=== PATIENT | female | born 1965 | race Caucasian/White ===

== ENCOUNTER 2018-06-11 14:00 | Emergency (ER) | payer OTHER ==
[~2018-06-11] VITALS: Ht 157.5 cm; Wt 77.1 kg
[2018-06-11 14:00] VITALS: BP_SYST 148
[2018-06-11] MEDS ORDERED: NACL 0.9% 1,000 ML IV ONE (14:26)
[2018-06-11 14:56] LABS: BASOPHILS # (AUTO) 0.2 K/uL (0.0-0.2); HEMATOCRIT 33.4 % (36-48); HEMOGLOBIN 10.1 g/dL (12.0-16.0); LYMPHOCYTES # (AUTO) 1.1 K/uL (1.0-5.5); LYMPHOCYTES % (AUTO) 11.3 % (20.5-51.5); MEAN CORPUSCULAR HEMOGLOBIN 20 pg (27-31); MEAN CORPUSCULAR HGB CONC 30 % (32-36); MEAN CORPUSCULAR VOLUME 67 fL (79.0-98.0); MONOCYTES # (AUTO) 0.4 K/uL (0.0-1.0); MONOCYTES % (AUTO) 4.6 % (1.7-9.3); NEUTROPHILS # (AUTO) 7.9 K/uL (1.8-7.7); NEUTROPHILS % (AUTO) 82.1 % (40.0-70.0); PLATELET COUNT (AUTO) 405 K/uL (130-430); RED BLOOD CELL COUNT(AUTO) 4.97 MIL/uL (4.2-6.2); RED CELL DISTRIBUTION WIDTH 21.2 % (9.0-15.0); WHITE BLOOD COUNT (AUTO) 9.6 K/uL (4.8-10.8)
[2018-06-11 15:06] LABS: CALCIUM 9.2 mg/dL (8.4-11.0); CREATININE 0.85 mg/dL (0.55-1.30); POTASSIUM 3.3 mmol/L (3.5-5.1)
[2018-06-11 15:10] LABS: ALBUMIN 4.4 g/dL (3.4-4.8); TOTAL BILIRUBIN 0.3 mg/dL (0.0-1.0)
[2018-06-11 15:11] LABS: BILIRUBIN,URINE 1+ (NEGATIVE); BLOOD, URINE NEGATIVE (NEGATIVE); CLARITY/URINE CLEAR (CLEAR); COLOR,URINE YELLOW (YELLOW); GLUCOSE,URINE NEGATIVE (NEGATIVE); KETONES,URINE 2+ (NEGATIVE); LEUKOCYTE ESTERASE ,URINE NEGATIVE (NEGATIVE); NITRITE, URINE NEGATIVE (NEGATIVE); PH,URINE 5.5 (5.0-8.0); PROTEIN URINE NEGATIVE (NEGATIVE); UROBILINOGEN,URINE 0.2 (0.2-1.0)
[2018-06-11 15:43] VITALS: BP_SYST 127
== END 2018-06-11 15:43 | disposition home or self-care (01) ==
LOC: SED 14:00
DX: R10.12 Left upper quadrant pain (principal); R11.0 Nausea; R03.0 Elevated blood-pressure reading, without diagnosis of hypertension; F41.9 Anxiety disorder, unspecified
CPT/HCPCS: 36415; 80053; 81003; 81025; 83690; 85025; 99283; J7030

== ENCOUNTER 2018-06-12 10:47 | Emergency (ER) | payer OTHER ==
[~2018-06-12] VITALS: Ht 157.5 cm; Wt 76.2 kg
[2018-06-12] MEDS ORDERED: KETOROLAC TROMETHAMINE 15 MG VIAL IVP ONE (11:30)
[2018-06-12] MEDS ORDERED: LORazepam 2 MG/ML VIAL (FOR ER USE) IVP ONE (11:30)
[2018-06-12] MEDS ORDERED: NACL 0.9% 1,000 ML IV ONE (11:30)
[2018-06-12] MEDS ORDERED: fentaNYL CITRATE/PF 100 MCG/2 ML AMP IVP ONE (12:45)
[2018-06-12 13:43] VITALS: BP_SYST 134
== END 2018-06-12 13:40 | disposition home or self-care (01) ==
LOC: SED 10:47
DX: R10.32 Left lower quadrant pain (principal); F41.9 Anxiety disorder, unspecified; R03.0 Elevated blood-pressure reading, without diagnosis of hypertension
CPT/HCPCS: 74176; 81002; 81025; 96361; 96374; 96375; 99284; J1885; J2060; J3010; J7030

== ENCOUNTER 2018-12-30 12:04 | Emergency (ER) | payer OTHER ==
[~2018-12-30] VITALS: Ht 160 cm; Wt 78.0 kg
[2018-12-30 12:27] VITALS: BP_SYST 119
--- NOTE | 2018-12-30 12:31 | NUR ---
Patient to ER bed 8 to gown for evaluation. Side rails up. Report given to TOÑO Wilson.
[2018-12-30] MEDS ORDERED: NACL 0.9% 1,000 ML IV ONE (12:48)
--- NOTE | 2018-12-30 12:58 | NUR ---
ER at bedside examining patient.
[2018-12-30] MEDS ORDERED: KETOROLAC TROMETHAMINE 30 MG VIAL IVP ONE (13:00)
[2018-12-30] MEDS ORDERED: ONDANSETRON HCL 4 MG/2 ML VIAL IVP ONE (13:00)
[2018-12-30 13:22] LABS: BASOPHILS # (AUTO) 0.1 K/uL (0.0-0.2); BASOPHILS % (AUTO) 0.6 % (0.0-2.0); EOSINOPHILS # (AUTO) 0.1 K/uL (0.0-0.4); EOSINOPHILS % (AUTO) 1.8 % (0.0-4.0); HEMATOCRIT 28.2 % (36-48); HEMOGLOBIN 8.6 g/dL (12.0-16.0); LYMPHOCYTES # (AUTO) 1.3 K/uL (1.0-5.5); LYMPHOCYTES % (AUTO) 16.4 % (20.5-51.5); MEAN CORPUSCULAR HEMOGLOBIN 21 pg (27-31); MEAN CORPUSCULAR HGB CONC 31 % (32-36); MEAN CORPUSCULAR VOLUME 67 fL (79.0-98.0); MONOCYTES # (AUTO) 0.6 K/uL (0.0-1.0); NEUTROPHILS # (AUTO) 6.1 K/uL (1.8-7.7); NEUTROPHILS % (AUTO) 74.2 % (40.0-70.0); PLATELET COUNT (AUTO) 412 K/uL (130-430); RED CELL DISTRIBUTION WIDTH 18.7 % (9.0-15.0); WHITE BLOOD COUNT (AUTO) 8.2 K/uL (4.8-10.8)
[2018-12-30] MEDS ORDERED: LORazepam 2 MG/ML VIAL (FOR ER USE) IVP ONE (13:30)
--- NOTE | 2018-12-30 13:32 | NUR ---
pt assesed, pt resting in bed 8 alert and oriented. pt states she has 9/10 pain after toradol. pt states she has pain status unchanged. pt given ativan per md order. md aware of unchanged pain. will continue to monitor. pt stated she normally uses dilauded for pain, because she has increased anxiety with morphine sometimes. pt denies allergy to morphine.
[2018-12-30 13:34] LABS: CALCIUM 8.7 mg/dL (8.4-11.0); CREATININE 0.77 mg/dL (0.55-1.30); POTASSIUM 3.7 mmol/L (3.5-5.1)
[2018-12-30 13:41] LABS: ALBUMIN 3.4 g/dL (3.4-4.8); TOTAL BILIRUBIN 0.2 mg/dL (0.0-1.0)
[2018-12-30] MEDS ORDERED: fentaNYL 25 MCG/HR PATCH TD SCH (13:45)
[2018-12-30] MEDS ORDERED: fentaNYL CITRATE/PF 100 MCG/2 ML AMP IVP ONE ×2 (14:00→15:15)
[2018-12-30 14:03] LABS: BILIRUBIN,URINE NEGATIVE (NEGATIVE); BLOOD, URINE NEGATIVE (NEGATIVE); CLARITY/URINE CLEAR (CLEAR); COLOR,URINE YELLOW (YELLOW); GLUCOSE,URINE NEGATIVE (NEGATIVE); KETONES,URINE NEGATIVE (NEGATIVE); LEUKOCYTE ESTERASE ,URINE NEGATIVE (NEGATIVE); NITRITE, URINE NEGATIVE (NEGATIVE); PROTEIN URINE NEGATIVE (NEGATIVE)
--- NOTE | 2018-12-30 14:54 | NUR ---
Patient returned from radiology department via gurney. Patient states pain is still horrible, and she has the worst headache of her life. made aware.
--- NOTE | 2018-12-30 16:02 | NUR ---
Patient given written and verbal discharge instructions and verbalizes understanding. ER MD discussed with patient the results and treatment provided. Patient in stable condition. ID arm band removed. IV catheter removed intact and dressing applied, no active bleeding. Rx of tylenol, Ativan given. Patient educated on pain management and to follow up with PMD. Pain Scale 0/10. Opportunity for questions provided and answered. Medication side effect fact sheet provided.
[2018-12-30 16:06] VITALS: BP_SYST 131
== END 2018-12-30 16:02 | disposition home or self-care (01) ==
LOC: SED 12:04
DX: S16.1XXA Strain of muscle, fascia and tendon at neck level, initial encounter (principal); S33.9XXA Sprain of unspecified parts of lumbar spine and pelvis, initial encounter; S80.01XA Contusion of right knee, initial encounter; S09.90XA Unspecified injury of head, initial encounter; F41.9 Anxiety disorder, unspecified; R42 Dizziness and giddiness; V49.40XA Driver injured in collision with unspecified motor vehicles in traffic accident, initial encounter; Y93.89 Activity, other specified; Y92.89 Other specified places as the place of occurrence of the external cause; Y99.8 Other external cause status
CPT/HCPCS: 36415; 70450-TC; 72040-TC; 72100-TC; 73564; 80053; 81003; 85025; 96361; 96374; 96375; 96376; 99284; J1885; J2060; J2405; J3010; J7030

== ENCOUNTER 2019-01-04 08:34 | Emergency (ER) | payer OTHER ==
[~2019-01-04] VITALS: Ht 160 cm; Wt 76.2 kg
[2019-01-04 08:52] VITALS: BP_SYST 137
--- NOTE | 2019-01-04 08:55 | NUR ---
Patient to ER bed 6 to gown for evaluation. Side rails up. Report given to Shannan LUNDBERG.
--- NOTE | 2019-01-04 08:58 | NUR ---
ER at bedside examining patient.
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
[2019-01-04] MEDS ORDERED: fentaNYL CITRATE/PF 100 MCG/2 ML AMP IM ONE (09:15)
[2019-01-04] MEDS ORDERED: DIAZEPAM 5 MG TABLET (VALIUM) PO ONE (09:15)
--- NOTE | 2019-01-04 09:50 | NUR ---
Loreto chaudhary in [facility] - 01/04/19 at 1051 by [email or web address] Patient resting in [facility] pain is still 02/22. Made DR Reilly aware
--- NOTE | 2019-01-04 09:50 | NUR ---
Patient resting in gurney, pt states pain is still 10/10. Made DR Reilly aware
--- NOTE | 2019-01-04 09:59 | NUR ---
ER at bedside patient.
[2019-01-04] MEDS ORDERED: KETOROLAC TROMETHAMINE 30 MG VIAL IM ONE (10:00)
[2019-01-04 10:15] VITALS: BP_SYST 137
--- NOTE | 2019-01-04 10:15 | NUR ---
Patient given written and verbal discharge instructions and verbalizes understanding. ER MD discussed with patient the results and treatment provided. Patient in stable condition. ID arm band removed. Rx of Naprosyn & Lidoderm 5% transdermal patch given. Patient educated on pain management and to follow up with PMD. Pain Scale 9/10 tolerable for patient. Opportunity for questions provided and answered. Medication side effect fact sheet provided.
== END 2019-01-04 10:15 | disposition home or self-care (01) ==
LOC: SED 08:34
DX: R51 Headache (principal); M62.830 Muscle spasm of back; M62.838 Other muscle spasm
CPT/HCPCS: 96372; 99283; J1885; J3010

== ENCOUNTER 2019-02-17 17:42 | Emergency (ER) | payer OTHER ==
[~2019-02-17] VITALS: Ht 157.5 cm; Wt 78.9 kg
[2019-02-17 17:45] VITALS: BP_SYST 164
[2019-02-17] MEDS ORDERED: LORazepam 2 MG/ML VIAL IVP ONE (18:15)
[2019-02-17] MEDS ORDERED: DILTIAZEM HCL 25 MG/5 ML VIAL IVP ONE (18:15)
[2019-02-17 18:42] LABS: HEMATOCRIT 34.1 % (36-48); HEMOGLOBIN 10.5 g/dL (12.0-16.0); MEAN CORPUSCULAR HEMOGLOBIN 22 pg (27-31); MEAN CORPUSCULAR HGB CONC 31 % (32-36); MEAN CORPUSCULAR VOLUME 70 fL (79.0-98.0); PLATELET COUNT (AUTO) 385 K/uL (130-430); RED BLOOD CELL COUNT(AUTO) 4.84 MIL/uL (4.2-6.2); RED CELL DISTRIBUTION WIDTH 20.1 % (9.0-15.0); WHITE BLOOD COUNT (AUTO) 11.3 K/uL (4.8-10.8)
[2019-02-17 19:16] LABS: ANION GAP 16 (5-15); CALCIUM 9.7 mg/dL (8.4-11.0); CHLORIDE 102 mmol/L (98-107); CREATININE 1.08 mg/dL (0.55-1.30); GLUCOSE 159 mg/dL (70-99); POTASSIUM 3.4 mmol/L (3.5-5.1); SODIUM SERUM 140 mmol/L (136-145); UREA NITROGEN, BLOOD 23 mg/dL (8-21)
[2019-02-17 19:17] LABS: GFR AFRICAN AMERICAN 69 mL/min (>90)
[2019-02-17 19:19] LABS: BAND % (MANUAL) 0 % (0-6); BASOPHILS % (MANUAL) 0 % (0-2); EOSINOPHILS % (MANUAL) 0 % (0-7); LYMPHOCYTES % (MANUAL) 11 % (20-46); MONOCYTES % (MANUAL) 6 % (0-11)
[2019-02-17 19:25] LABS: ALANINE AMINOTRANSFERASE 19 U/L (12-78); ALBUMIN 4.1 g/dL (3.4-4.8); ASPARTATE AMINOTRANSFERASE 20 U/L (10-37); LIPASE 102 U/L (73-393); TOTAL BILIRUBIN 0.5 mg/dL (0.0-1.0)
[2019-02-17 19:26] LABS: ALCOHOL, BLOOD < 3 mg/dL (<10)
[2019-02-17 19:55] LABS: BARBITURATE, URINE NEGATIVE (NEG <=200); URINE AMPHETAMINE NEGATIVE (NEG <=500)
[2019-02-17 19:56] LABS: BENZODIAZEPINE, URINE POSITIVE (NEG <=150); CANNABINOID, URINE POSITIVE (NEG <=50); COCAINE, URINE NEGATIVE (NEG <=150); METHAMPHETAMINES SCREEN,URINE NEGATIVE (NEG <=500); OPIATE, URINE NEGATIVE (NEG <=100); PHENCYCLIDINE SCREEN,URINE NEGATIVE (NEG <=25); UR TRICYCLIC ANTIDEPRESSANTS NEGATIVE (NEG <=300); URINE METHADONE NEGATIVE (NEG <=200); URINE OXYCODONE SCREEN NEGATIVE (NEG <=100); URINE PROPOXYPHENE SCREEN NEGATIVE (NEG <=300)
[2019-02-17 19:58] VITALS: BP_SYST 132
[2019-02-17 20:04] LABS: BILIRUBIN,URINE NEGATIVE (NEGATIVE); BLOOD, URINE NEGATIVE (NEGATIVE); CLARITY/URINE CLEAR (CLEAR); COLOR,URINE YELLOW (YELLOW); GLUCOSE,URINE NEGATIVE (NEGATIVE); KETONES,URINE 1+ (NEGATIVE); LEUKOCYTE ESTERASE ,URINE NEGATIVE (NEGATIVE); NITRITE, URINE NEGATIVE (NEGATIVE); PROTEIN URINE TRACE (NEGATIVE); UROBILINOGEN,URINE 0.2 (0.2-1.0)
[2019-02-17 20:07] LABS: BACTERIA,URINE FEW /HPF (None Seen); MUCUS,URINE None Seen /LPF (None Seen); RBC,URINE NONE SEEN /HPF (0-3); WBC,URINE 0-3 /HPF (0-3)
== END 2019-02-17 19:58 | disposition home or self-care (01) ==
LOC: SED 17:42
DX: F41.9 Anxiety disorder, unspecified (principal); R10.9 Unspecified abdominal pain; I10 Essential (primary) hypertension
CPT/HCPCS: 36415; 71045; 74176; 80053; 80307; 81000; 81025; 83690; 84484; 85007; 85027; 93005; 96374; 99284; G0482; J2060

== ENCOUNTER 2019-04-17 01:44 | Emergency (ER) | payer OTHER ==
[~2019-04-17] VITALS: Ht 157.5 cm; Wt 79.4 kg
[2019-04-17 01:54] VITALS: BP_SYST 186
--- NOTE | 2019-04-17 01:59 | NUR ---
Patient to ER bed 07 to gown for evaluation. Side rails up. Report given to TOÑO ROTHMAN
--- NOTE | 2019-04-17 02:00 | NUR ---
Pt complains of "churning and gurgling" of the abdomen for about a month. Pt states she has yellow diarrhea and then would stop. Pt denies N/V or recent cough. Pt also complains of pressure behind sinus region. No other injuries/complaints per patient or noted. Addendum: 04/17/19 at 0207 by [email or web address] Patient also complains that she feels her abdomen is distended and that her face is swollen.
--- NOTE | 2019-04-17 02:04 | NUR ---
ER Dr. Jim at bedside examining patient.
[2019-04-17] MEDS ORDERED: LORazepam 1 MG TABLET PO ONE (02:15)
--- NOTE | 2019-04-17 02:34 | NUR ---
Xray at bedside, pt tolerated well.
--- NOTE | 2019-04-17 02:45 | NUR ---
ER Dr. Jim at bedside explaining results to patient.
--- NOTE | 2019-04-17 03:23 | NUR ---
patient resting comfortably in bed. No acute distress, will continue to monitor.
--- NOTE | 2019-04-17 04:39 | NUR ---
Patient resting comfortably in bed. No acute distress, will continue to monitor.
[2019-04-17 04:59] VITALS: BP_SYST 150
--- NOTE | 2019-04-17 04:59 | NUR ---
Patient given written and verbal discharge instructions and verbalizes understanding. ER MD discussed with patient the results and treatment provided. Patient in stable condition. ID arm band removed. Rx of Xanax given. Patient educated on pain management and to follow up with PMD. Pain Scale 0. Opportunity for questions provided and answered. Medication side effect fact sheet provided.
== END 2019-04-17 04:59 | disposition home or self-care (01) ==
LOC: SED 01:44
DX: F41.9 Anxiety disorder, unspecified (principal); F43.9 Reaction to severe stress, unspecified; G47.00 Insomnia, unspecified; I10 Essential (primary) hypertension
CPT/HCPCS: 74018; 93005; 99283

== ENCOUNTER 2019-05-12 00:21 | Emergency (ER) | payer OTHER ==
[~2019-05-12] VITALS: Ht 160 cm; Wt 78.5 kg
[2019-05-12 00:25] VITALS: BP_SYST 186
--- NOTE | 2019-05-12 00:25 | NUR ---
Placed in room 7 . Placed on draw frame tender, blood pressure machine and pulse oximeter. To gown for exam. Side rails up. Report given to STEPHAN LUNDBERG.
--- NOTE | 2019-05-12 00:30 | NUR ---
Patient complains of abdominal pain and lower back pain for the last few days. Pt states at times she wakes up feeling as if something is sitting on her chest and abdomen. O2 saturation on room air is 98%. Pt denies N/V, fever. No other injuries/complaints per patient or noted.
[2019-05-12] MEDS ORDERED: LORazepam 2 MG/ML VIAL IM ONE (00:45)
--- NOTE | 2019-05-12 00:58 | NUR ---
patient insisted to have shot in deltoid than gluteus jaron. medication was given, pt tolerated well. No adverse reaction, will continue to monitor.
--- NOTE | 2019-05-12 00:59 | NUR ---
ER Dr. Kennedy at bedside examining patient.
[2019-05-12 01:03] LABS: BILIRUBIN,URINE NEGATIVE (NEGATIVE); BLOOD, URINE 3+ (NEGATIVE); CLARITY/URINE CLEAR (CLEAR); COLOR,URINE YELLOW (YELLOW); GLUCOSE,URINE NEGATIVE (NEGATIVE); KETONES,URINE 2+ (NEGATIVE); LEUKOCYTE ESTERASE ,URINE NEGATIVE (NEGATIVE); NITRITE, URINE NEGATIVE (NEGATIVE); PROTEIN URINE NEGATIVE (NEGATIVE); UROBILINOGEN,URINE 0.2 (0.2-1.0)
[2019-05-12 01:09] LABS: BACTERIA,URINE FEW /HPF (None Seen); WBC,URINE 0-3 /HPF (0-3)
--- NOTE | 2019-05-12 01:43 | NUR ---
Patient states she feels a little better. Current BP at 142/94 with HR of 73.
[2019-05-12 02:40] VITALS: BP_SYST 130
--- NOTE | 2019-05-12 02:40 | NUR ---
Patient given written and verbal discharge instructions and verbalizes understanding. ER MD discussed with patient the results and treatment provided. Patient in stable condition. ID arm band removed. Rx of Cipro given. Patient educated on pain management and to follow up with PMD. Pain Scale 0. Opportunity for questions provided and answered. Medication side effect fact sheet provided.
== END 2019-05-12 02:40 | disposition home or self-care (01) ==
LOC: SED 00:21
DX: R07.9 Chest pain, unspecified (principal); N39.0 Urinary tract infection, site not specified; F41.9 Anxiety disorder, unspecified
CPT/HCPCS: 81000; 96372; 99283; J2060

== ENCOUNTER 2019-08-28 05:54 | Emergency (ER) | payer OTHER ==
[~2019-08-28] VITALS: Ht 157.5 cm; Wt 90.7 kg
[2019-08-28 06:03] VITALS: BP_SYST 153
[2019-08-28 06:51] LABS: BASOPHILS % (AUTO) 0.6 % (0.0-2.0); EOSINOPHILS % (AUTO) 0.1 % (0.0-4.0); HEMATOCRIT 42.5 % (36-48); HEMOGLOBIN 14.1 g/dL (12.0-16.0); MEAN CORPUSCULAR HEMOGLOBIN 29 pg (27-31); MEAN CORPUSCULAR HGB CONC 33 % (32-36); MEAN CORPUSCULAR VOLUME 87 fL (79.0-98.0); MONOCYTES # (AUTO) 0.5 K/uL (0.0-1.0); MONOCYTES % (AUTO) 6.1 % (1.7-9.3); NEUTROPHILS # (AUTO) 6.5 K/uL (1.8-7.7); NEUTROPHILS % (AUTO) 81.2 % (40.0-70.0); PLATELET COUNT (AUTO) 282 K/uL (130-430); RED CELL DISTRIBUTION WIDTH 15.7 % (9.0-15.0)
[2019-08-28 07:12] LABS: ANION GAP 11 (5-15); CALCIUM 9.2 mg/dL (8.4-11.0); CHLORIDE 97 mmol/L (98-107); CREATININE 0.81 mg/dL (0.55-1.30); GLUCOSE 126 mg/dL (70-99); SODIUM SERUM 136 mmol/L (136-145); UREA NITROGEN, BLOOD 9 mg/dL (8-21)
[2019-08-28 07:21] LABS: ALANINE AMINOTRANSFERASE 69 U/L (12-78); ALBUMIN 4.1 g/dL (3.4-4.8); AMYLASE 43 U/L (0-100); ASPARTATE AMINOTRANSFERASE 64 U/L (10-37); LIPASE 142 U/L (73-393); TOTAL BILIRUBIN 0.5 mg/dL (0.0-1.0)
[2019-08-28 07:25] LABS: INR 1.1 (0.8-1.2); PROTHROMBIN TIME 10.7 SECS (9.5-12.5)
[2019-08-28 07:27] LABS: GFR AFRICAN AMERICAN 95 mL/min (>90); POTASSIUM 2.6 mmol/L (3.5-5.1)
[2019-08-28] MEDS ORDERED: POTASSIUM CHLORIDE 20 MEQ TAB.PRT.SR PO ONE (07:30)
[2019-08-28] MEDS ORDERED: KCL 20 mEq in 100 mL (PREMIX) 100 ML IV ONE (07:30)
[2019-08-28 08:40] LABS: BILIRUBIN,URINE 1+ (NEGATIVE); BLOOD, URINE 2+ (NEGATIVE); CLARITY/URINE CLEAR (CLEAR); COLOR,URINE YELLOW (YELLOW); GLUCOSE,URINE NEGATIVE (NEGATIVE); KETONES,URINE 2+ (NEGATIVE); LEUKOCYTE ESTERASE ,URINE NEGATIVE (NEGATIVE); NITRITE, URINE NEGATIVE (NEGATIVE); PROTEIN URINE NEGATIVE (NEGATIVE); UROBILINOGEN,URINE 0.2 (0.2-1.0)
[2019-08-28] MEDS ORDERED: ACETAMINOPHEN 500 MG TABLET PO ONE (09:45)
[2019-08-28] MEDS ORDERED: KETOROLAC TROMETHAMINE 15 MG VIAL IVP ONE (10:30)
[2019-08-28] MEDS ORDERED: MAG-AL HYDROX/SIMETH 30 ML UDC PO ONE (10:30)
[2019-08-28 11:09] VITALS: BP_SYST 134
== END 2019-08-28 11:08 | disposition home or self-care (01) ==
LOC: SED 05:54
DX: E87.6 Hypokalemia (principal); F41.9 Anxiety disorder, unspecified
CPT/HCPCS: 36415; 74018; 80053; 82150; 83690; 83880; 84132; 84484; 85025; 85610; 96365; 96366; 96375; 99284; J1885; J3480

== ENCOUNTER 2019-08-28 12:55 | Emergency (ER) | payer OTHER ==
[~2019-08-28] VITALS: Ht 167.6 cm; Wt 74.8 kg
[2019-08-28 13:41] VITALS: BP_SYST 178
[2019-08-28] MEDS ORDERED: ONDANSETRON HCL 4 MG/2 ML VIAL IVP ONE (14:00)
[2019-08-28] MEDS ORDERED: MORPHINE 4 MG/ML INJ. SYRINGE IVP ONE (14:00)
== END 2019-08-28 15:30 | disposition home or self-care (01) ==
LOC: SED 12:55
DX: R10.30 Lower abdominal pain, unspecified (principal); F41.9 Anxiety disorder, unspecified
CPT/HCPCS: 74176; 96374; 96375; 99284; J2270; J2405

== ENCOUNTER 2019-08-30 06:19 | Emergency (ER) | payer OTHER ==
[~2019-08-30] VITALS: Ht 160 cm; Wt 80.7 kg
[2019-08-30 06:20] VITALS: BP_SYST 124
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
--- NOTE | 2019-08-30 06:30 | NUR ---
Pt states "I need to go to the restroom now. I have diarrhea." Pt ambulates to restroom with steady gait.
--- NOTE | 2019-08-30 06:40 | NUR ---
Dr. Lopez at bedside.
--- NOTE | 2019-08-30 07:05 | NUR ---
B/P 155/92, P 88. Pt denies c/o C/P or SOB. Pt states B/P gets high when she feels anxious. Dr. Lopez notified and pt cleared to be discharged.
[2019-08-30 07:10] VITALS: BP_SYST 155
--- NOTE | 2019-08-30 07:10 | NUR ---
Patient given written and verbal discharge instructions and verbalizes understanding. ER MD discussed with patient the results and treatment provided. Patient in stable condition. ID arm band removed. No Rx given. Patient educated on pain management and to follow up with PMD. Pain Scale 3/10. Opportunity for questions provided and answered. Medication side effect fact sheet provided.
== END 2019-08-30 07:10 | disposition home or self-care (01) ==
LOC: SED 06:19
DX: J02.9 Acute pharyngitis, unspecified (principal); F41.9 Anxiety disorder, unspecified
CPT/HCPCS: 99281

== ENCOUNTER 2019-08-30 21:21 | Emergency (ER) | payer OTHER, SELFPAY ==
[~2019-08-30] VITALS: Ht 160 cm; Wt 80.7 kg
[2019-08-30 21:21] VITALS: BP_SYST 152
[2019-08-30 22:24] LABS: BASOPHILS # (AUTO) 0.1 K/uL (0.0-0.2); BASOPHILS % (AUTO) 1.8 % (0.0-2.0); EOSINOPHILS # (AUTO) 0.1 K/uL (0.0-0.4); EOSINOPHILS % (AUTO) 0.7 % (0.0-4.0); HEMATOCRIT 42.3 % (36-48); HEMOGLOBIN 14.1 g/dL (12.0-16.0); LYMPHOCYTES # (AUTO) 2.2 K/uL (1.0-5.5); LYMPHOCYTES % (AUTO) 27.5 % (20.5-51.5); MEAN CORPUSCULAR HEMOGLOBIN 29 pg (27-31); MEAN CORPUSCULAR HGB CONC 34 % (32-36); MEAN CORPUSCULAR VOLUME 88 fL (79.0-98.0); MONOCYTES # (AUTO) 0.6 K/uL (0.0-1.0); NEUTROPHILS # (AUTO) 4.9 K/uL (1.8-7.7); PLATELET COUNT (AUTO) 276 K/uL (130-430); RED BLOOD CELL COUNT(AUTO) 4.82 MIL/uL (4.2-6.2); RED CELL DISTRIBUTION WIDTH 15.7 % (9.0-15.0); WHITE BLOOD COUNT (AUTO) 7.9 K/uL (4.8-10.8)
[2019-08-30 22:29] LABS: PROTHROMBIN TIME 10.4 SECS (9.5-12.5)
[2019-08-30 22:34] LABS: CREATININE 0.88 mg/dL (0.55-1.30)
[2019-08-30 22:39] LABS: TOTAL BILIRUBIN 0.4 mg/dL (0.0-1.0)
[2019-08-30 22:40] LABS: POTASSIUM 2.6 mmol/L (3.5-5.1)
[2019-08-30] MEDS ORDERED: ASPIRIN 81 MG TAB.CHEW PO ONE (22:45)
[2019-08-30] MEDS ORDERED: KCL 20 mEq in 100 mL (PREMIX) 100 ML IV ONE (23:00)
[2019-08-30] MEDS ORDERED: MAGNESIUM SULFATE 50 ML IV ONE (23:00)
[2019-08-30] MEDS ORDERED: POTASSIUM CHLORIDE 20 MEQ TAB.PRT.SR PO ONE (23:00)
[2019-08-31 01:24] LABS: ANION GAP 11 (5-15); CALCIUM 8.9 mg/dL (8.4-11.0); CHLORIDE 100 mmol/L (98-107); CREATININE 0.74 mg/dL (0.55-1.30); GLUCOSE 102 mg/dL (70-99); POTASSIUM 3.1 mmol/L (3.5-5.1); SODIUM SERUM 138 mmol/L (136-145); UREA NITROGEN, BLOOD 6 mg/dL (8-21)
[2019-08-31 01:25] LABS: GFR AFRICAN AMERICAN 106 mL/min (>90)
[2019-08-31] MEDS ORDERED: POTASSIUM CHLORIDE 20 MEQ TAB.PRT.SR PO ONE (02:30)
[2019-08-31 02:53] VITALS: BP_SYST 161
== END 2019-08-31 02:53 | disposition home or self-care (01) ==
LOC: EEVIPCON 21:21 → SED 21:21
DX: R07.89 Other chest pain (principal); J02.9 Acute pharyngitis, unspecified; J34.89 Other specified disorders of nose and nasal sinuses; F41.9 Anxiety disorder, unspecified; Z20.828 Contact with and (suspected) exposure to other viral communicable diseases
CPT/HCPCS: 36415; 71045; 80048; 80053; 83880; 84484; 85025; 85379; 85610; 85730; 86710; 93005 ×2; 96365 ×2; 96366 ×2; 96368; 99285; J3475; J3480; U0002

== ENCOUNTER 2019-09-02 15:33 | Emergency (ER) | payer OTHER ==
[~2019-09-02] VITALS: Ht 152.4 cm; Wt 72.6 kg
[2019-09-02 15:40] VITALS: BP_SYST 167
[2019-09-02] MEDS ORDERED: LORazepam 2 MG/ML VIAL IVP ONE (16:00)
[2019-09-02] MEDS ORDERED: NACL 0.9% 2,000 ML IV ONE (16:00)
[2019-09-02 16:17] LABS: BILIRUBIN,URINE NEGATIVE (NEGATIVE); BLOOD, URINE 3+ (NEGATIVE); CLARITY/URINE SL CLOUDY (CLEAR); COLOR,URINE RED (YELLOW); GLUCOSE,URINE NEGATIVE (NEGATIVE); KETONES,URINE TRACE (NEGATIVE); LEUKOCYTE ESTERASE ,URINE NEGATIVE (NEGATIVE); NITRITE, URINE NEGATIVE (NEGATIVE); PROTEIN URINE 1+ (NEGATIVE); UROBILINOGEN,URINE 0.2 (0.2-1.0)
[2019-09-02 16:24] LABS: BACTERIA,URINE FEW /HPF (None Seen); MUCUS,URINE 1+ /LPF (None Seen); RBC,URINE >100 /HPF (0-3); WBC,URINE 0-3 /HPF (0-3)
[2019-09-02 16:28] LABS: BASOPHILS # (AUTO) 0.1 K/uL (0.0-0.2); BASOPHILS % (AUTO) 0.7 % (0.0-2.0); EOSINOPHILS # (AUTO) 0.1 K/uL (0.0-0.4); EOSINOPHILS % (AUTO) 0.7 % (0.0-4.0); HEMATOCRIT 43.4 % (36-48); HEMOGLOBIN 14.2 g/dL (12.0-16.0); LYMPHOCYTES # (AUTO) 1.6 K/uL (1.0-5.5); LYMPHOCYTES % (AUTO) 21.1 % (20.5-51.5); MEAN CORPUSCULAR HEMOGLOBIN 29 pg (27-31); MEAN CORPUSCULAR HGB CONC 33 % (32-36); MEAN CORPUSCULAR VOLUME 89 fL (79.0-98.0); MONOCYTES # (AUTO) 0.6 K/uL (0.0-1.0); MONOCYTES % (AUTO) 8.1 % (1.7-9.3); NEUTROPHILS # (AUTO) 5.2 K/uL (1.8-7.7); NEUTROPHILS % (AUTO) 69.4 % (40.0-70.0); PLATELET COUNT (AUTO) 267 K/uL (130-430); RED BLOOD CELL COUNT(AUTO) 4.88 MIL/uL (4.2-6.2); RED CELL DISTRIBUTION WIDTH 16.2 % (9.0-15.0); WHITE BLOOD COUNT (AUTO) 7.5 K/uL (4.8-10.8)
[2019-09-02 16:31] LABS: CALCIUM 9.6 mg/dL (8.4-11.0); CREATININE 0.96 mg/dL (0.55-1.30)
[2019-09-02 16:35] LABS: PROTHROMBIN TIME 10.4 SECS (9.5-12.5)
[2019-09-02 16:46] LABS: FREE T4 (FREE THYROXINE) 1.3 ng/dl (0.8-1.5); THYROID STIMULATING HORMONE 1.63 uIu/mL (0.36-3.74); TOTAL BILIRUBIN 0.3 mg/dL (0.0-1.0)
[2019-09-02] MEDS ORDERED: POTASSIUM CHLORIDE 20 MEQ/PKT PACKET PO ONE (17:00)
[2019-09-02] MEDS ORDERED: ONDANSETRON HCL 4 MG/2 ML VIAL IVP ONE (17:15)
[2019-09-02] MEDS ORDERED: MORPHINE 4 MG/ML INJ. SYRINGE IVP ONE (17:15)
[2019-09-02 18:20] LABS: CALCIUM 8.5 mg/dL (8.4-11.0); CREATININE 0.75 mg/dL (0.55-1.30); POTASSIUM 4.7 mmol/L (3.5-5.1)
[2019-09-02 19:53] VITALS: BP_SYST 144
== END 2019-09-02 19:46 | disposition home or self-care (01) ==
LOC: SED 15:33
DX: F41.9 Anxiety disorder, unspecified (principal); N93.8 Other specified abnormal uterine and vaginal bleeding; N80.9 Endometriosis, unspecified
CPT/HCPCS: 36415; 76830; 76857; 80048; 80053; 81000; 81025; 84439; 84443; 84479; 84702; 85025; 85610; 85730; 96374; 96375; 99284; J2060; J2270; J2405; J7030; 76856-TC

== ENCOUNTER 2019-12-24 14:15 | Emergency (ER) | payer OTHER ==
[~2019-12-24] VITALS: Ht 160 cm; Wt 80.7 kg
[2019-12-24 14:21] VITALS: BP_SYST 160
[2019-12-24 14:45] LABS: BILIRUBIN,URINE NEGATIVE (NEGATIVE); BLOOD, URINE 2+ (NEGATIVE); COLOR,URINE YELLOW (YELLOW); GLUCOSE,URINE NEGATIVE (NEGATIVE); KETONES,URINE NEGATIVE (NEGATIVE); LEUKOCYTE ESTERASE ,URINE TRACE (NEGATIVE); NITRITE, URINE POSITIVE (NEGATIVE); PROTEIN URINE NEGATIVE (NEGATIVE); UROBILINOGEN,URINE 0.2 (0.2-1.0)
[2019-12-24 14:52] LABS: CLARITY/URINE HAZY (CLEAR)
[2019-12-24 14:55] LABS: BACTERIA,URINE MODERATE /HPF (None Seen)
[2019-12-24 15:35] LABS: BASOPHILS # (AUTO) 0.1 K/uL (0.0-0.2); BASOPHILS % (AUTO) 0.7 % (0.0-2.0); EOSINOPHILS # (AUTO) 0.1 K/uL (0.0-0.4); EOSINOPHILS % (AUTO) 1.2 % (0.0-4.0); HEMATOCRIT 34.2 % (36-48); HEMOGLOBIN 10.7 g/dL (12.0-16.0); LYMPHOCYTES # (AUTO) 2.1 K/uL (1.0-5.5); LYMPHOCYTES % (AUTO) 28.1 % (20.5-51.5); MEAN CORPUSCULAR HEMOGLOBIN 25 pg (27-31); MEAN CORPUSCULAR HGB CONC 31 % (32-36); MEAN CORPUSCULAR VOLUME 81 fL (79.0-98.0); MONOCYTES # (AUTO) 0.5 K/uL (0.0-1.0); MONOCYTES % (AUTO) 6.4 % (1.7-9.3); NEUTROPHILS # (AUTO) 4.7 K/uL (1.8-7.7); NEUTROPHILS % (AUTO) 63.6 % (40.0-70.0); PLATELET COUNT (AUTO) 314 K/uL (130-430); RED BLOOD CELL COUNT(AUTO) 4.21 MIL/uL (4.2-6.2); RED CELL DISTRIBUTION WIDTH 17.1 % (9.0-15.0); WHITE BLOOD COUNT (AUTO) 7.4 K/uL (4.8-10.8)
[2019-12-24 15:41] LABS: CALCIUM 8.9 mg/dL (8.4-11.0); CREATININE 0.74 mg/dL (0.55-1.30); POTASSIUM 3.6 mmol/L (3.5-5.1)
[2019-12-24] MEDS ORDERED: IBUPROFEN 600 MG TABLET PO ONE (16:00)
[2019-12-24] MEDS ORDERED: NITROFURANTOIN MONOHYD/M-CRYST 100 MG CAPSULE PO ONE (16:00)
[2019-12-24] MEDS ORDERED: PHENAZOPYRIDINE HCL 100 MG TABLET PO ONE (16:00)
[2019-12-24] MEDS ORDERED: KETOROLAC TROMETHAMINE 60 MG/2 ML VIAL IM ONE (16:00)
[2019-12-24] MEDS ORDERED: PHENAZOPYRIDINE HCL 100 MG TABLET ONE (16:18)
[2019-12-24 16:21] VITALS: BP_SYST 146
[2019-12-27 03:07] LABS: CHLAMYDIA TRACHOMATIS NAA Negative (Negative); NEISSERIA GONORRHOEAE NAA Negative (Negative)
== END 2019-12-24 16:21 | disposition home or self-care (01) ==
LOC: SED 14:15
DX: N30.00 Acute cystitis without hematuria (principal); R03.0 Elevated blood-pressure reading, without diagnosis of hypertension; F41.0 Panic disorder [episodic paroxysmal anxiety]; Z86.2 Personal history of diseases of the blood and blood-forming organs and certain disorders involving the immune mechanism
CPT/HCPCS: 36415; 80048; 81000-TC; 85025; 87086; 87491; 87591; 93005; 99284

== ENCOUNTER 2020-05-06 11:11 | Emergency (ER) | payer OTHER, SELFPAY ==
[~2020-05-06] VITALS: Ht 160 cm; Wt 70.8 kg
[2020-05-06 11:11] VITALS: BP_SYST 125
--- NOTE | 2020-05-06 11:11 | NUR ---
BROUGHT BACK TO TRIAGE TENT, TRIAGED AND WILL ASSUME CARE
--- NOTE | 2020-05-06 11:50 | NUR ---
DR MCDANIELS OUTSIDE TO TENT TO EVALUATE PT.
--- NOTE | 2020-05-06 12:30 | NUR ---
NO CHANGES. AWAITING OPEN BED IN ER.
[2020-05-06 12:59] LABS: CALCIUM 9.4 mg/dL (8.4-11.0); CREATININE 0.73 mg/dL (0.55-1.30); POTASSIUM 4.3 mmol/L (3.5-5.1)
[2020-05-06 13:14] LABS: ALBUMIN 3.7 g/dL (3.4-4.8); TOTAL BILIRUBIN 0.2 mg/dL (0.0-1.0)
[2020-05-06 13:23] LABS: BASOPHILS % (AUTO) 0.8 % (0.0-2.0); EOSINOPHILS % (AUTO) 0.7 % (0.0-4.0); HEMATOCRIT 36.5 % (36-48); HEMOGLOBIN 11.1 g/dL (12.0-16.0); LYMPHOCYTES # (AUTO) 1.6 K/uL (1.0-5.5); MEAN CORPUSCULAR HEMOGLOBIN 22 pg (27-31); MEAN CORPUSCULAR HGB CONC 30 % (32-36); MEAN CORPUSCULAR VOLUME 74 fL (79.0-98.0); MONOCYTES # (AUTO) 0.4 K/uL (0.0-1.0); NEUTROPHILS % (AUTO) 66.5 % (40.0-70.0); PLATELET COUNT (AUTO) 330 K/uL (130-430); RED BLOOD CELL COUNT(AUTO) 4.94 MIL/uL (4.2-6.2); RED CELL DISTRIBUTION WIDTH 19.7 % (9.0-15.0)
--- NOTE | 2020-05-06 13:34 | NUR ---
PT CALLED AND STATES THAT SHE WENT HOME BECAUSE SHE WAS COLD IN TENT, SHE SAYS SHE NEEDED TO CHANGE HER CLOTHES. PT STATES SHE WILL RETURN SOON.
--- NOTE | 2020-05-06 13:37 | NUR ---
DR MCDANIELS OUT TO TENT TO SPEAK WITH PT.
[2020-05-06 13:53] VITALS: BP_SYST 124
--- NOTE | 2020-05-06 13:54 | NUR ---
Patient given written and verbal discharge instructions and verbalizes understanding. ER MD discussed with patient the results and treatment provided. Patient in stable condition. ID arm band removed. Rx of NORCO, ZOFRAN, PEPCID given. Patient educated on pain management and to follow up with PMD. Pain Scale 0/10. Opportunity for questions provided and answered. Medication side effect fact sheet provided.
== END 2020-05-06 13:54 | disposition home or self-care (01) ==
LOC: SED 11:11
DX: R10.9 Unspecified abdominal pain (principal)
CPT/HCPCS: 36415; 80053; 82550-TC; 84484; 85025; 93005; 99284

== ENCOUNTER 2021-12-02 12:29 | Emergency (ER) | payer OTHER ==
[~2021-12-02] VITALS: Ht 160 cm; Wt 66.7 kg
[2021-12-02 12:34] VITALS: BP_SYST 142
== END 2021-12-02 16:30 | disposition left against medical advice (07) ==
LOC: SED 12:29
DX: H53.8 Other visual disturbances (principal); R51.9 Headache, unspecified; Z53.21 Procedure and treatment not carried out due to patient leaving prior to being seen by health care provider

== ENCOUNTER 2021-12-13 21:02 | Emergency (ER) | payer OTHER ==
[~2021-12-13] VITALS: Ht 167.6 cm; Wt 63.5 kg
[2021-12-13 21:04] VITALS: BP_SYST 206
--- NOTE | 2021-12-13 21:30 | NUR ---
Pt brought by self, A&Ox4, pt presents to ER with chest pain/ anxiety, pt states she has Hx of anxiety, skin pink and warm, cap refill <3, VSS.
--- NOTE | 2021-12-13 22:45 | NUR ---
Dr Gutierrez evaluating patient in the triage room
--- NOTE | 2021-12-13 22:55 | NUR ---
Report given to Yomaira MENDOZA
--- NOTE | 2021-12-13 22:55 | NUR ---
Loreto chaudhary in [facility] - 12/13/21 at 2308 by [email or web address] Report given to Yomaira LUNDBERG
[2021-12-13] MEDS ORDERED: PANTOPRAZOLE SODIUM 40 MG/VIAL (PROTONIX) IVP ONE (23:15)
[2021-12-13] MEDS ORDERED: ONDANSETRON HCL 4 MG/2 ML VIAL IVP ONE (23:15)
[2021-12-13] MEDS ORDERED: MORPHINE 2 MG/ML INJ. SYRINGE IVP ONE (23:15)
[2021-12-13] MEDS ORDERED: MAG HYDROX/AL HYDROX/SIMETH 30 ML, DICYCLOMINE HCL 20 MG, LIDOCAINE VISCOUS 2% 15ML (PO... PO ONE ×3 (23:15)
[2021-12-13] MEDS ORDERED: NACL 0.9% 1,000 ML IV ONE ×2 (23:15)
--- NOTE | 2021-12-13 23:27 | NUR ---
A&Ox4, pt presents to ER with chest pain/ anxiety, pt states she has Hx of anxiety, skin pink and warm, cap refill <3, VSS. Abdominal Pain 10/10 radiating to the back. Pt given GI cocktail and following MD orders of care.
--- NOTE | 2021-12-14 00:25 | NUR ---
Lab at bedside
--- NOTE | 2021-12-14 00:35 | NUR ---
Patient taken to CT scan via wheelchair accompanied by radiology. Addendum: 12/14/21 at 0045 by [email or web address] Patient taken to ultrasound via wheelchair accompanied by radiology.
[2021-12-14 00:46] LABS: BASOPHILS # (AUTO) 0.1 K/uL (0.0-0.2); BASOPHILS % (AUTO) 0.9 % (0.0-2.0); EOSINOPHILS % (AUTO) 0.3 % (0.0-4.0); HEMATOCRIT 38.9 % (36-48); HEMOGLOBIN 13.4 g/dL (12.0-16.0); LYMPHOCYTES # (AUTO) 1.8 K/uL (1.0-5.5); LYMPHOCYTES % (AUTO) 24.5 % (20.5-51.5); MEAN CORPUSCULAR HEMOGLOBIN 31 pg (27-31); MEAN CORPUSCULAR HGB CONC 35 % (32-36); MEAN CORPUSCULAR VOLUME 89 fL (79.0-98.0); MONOCYTES # (AUTO) 0.6 K/uL (0.0-1.0); MONOCYTES % (AUTO) 7.6 % (1.7-9.3); NEUTROPHILS # (AUTO) 4.9 K/uL (1.8-7.7); NEUTROPHILS % (AUTO) 66.7 % (40.0-70.0); PLATELET COUNT (AUTO) 235 K/uL (130-430); RED BLOOD CELL COUNT(AUTO) 4.38 MIL/uL (4.2-6.2); RED CELL DISTRIBUTION WIDTH 13.8 % (9.0-15.0); WHITE BLOOD COUNT (AUTO) 7.3 K/uL (4.8-10.8)
[2021-12-14 01:22] LABS: CALCIUM 9.5 mg/dL (8.4-11.0); CREATININE 0.79 mg/dL (0.55-1.30); POTASSIUM 3.7 mmol/L (3.5-5.1)
[2021-12-14] MEDS ORDERED: DIPHENHYDRAMINE INJ 50 MG/ML VIAL IVP ONE (01:30)
[2021-12-14 01:33] LABS: ALBUMIN 3.9 g/dL (3.4-4.8); TOTAL BILIRUBIN 0.6 mg/dL (0.0-1.0)
--- NOTE | 2021-12-14 02:05 | NUR ---
Pt endorsed to Giselle LUNDBERG
--- NOTE | 2021-12-14 02:05 | NUR ---
Received report from Yomaira MENDOZA; assuming care at this time.
[2021-12-14] MEDS ORDERED: PRO40 PO (02:10)
[2021-12-14 02:47] LABS: BILIRUBIN,URINE NEGATIVE (NEGATIVE); CLARITY/URINE CLEAR (CLEAR); COLOR,URINE YELLOW (YELLOW); GLUCOSE,URINE NEGATIVE (NEGATIVE); KETONES,URINE 1+ (NEGATIVE); LEUKOCYTE ESTERASE ,URINE NEGATIVE (NEGATIVE); NITRITE, URINE NEGATIVE (NEGATIVE); PROTEIN URINE NEGATIVE (NEGATIVE); UROBILINOGEN,URINE 0.2 (0.2-1.0)
[2021-12-14 02:52] LABS: BLOOD, URINE TRACE (NEGATIVE)
--- NOTE | 2021-12-14 03:10 | NUR ---
Patient given written and verbal discharge instructions and verbalizes understanding. ER MD discussed with patient the results and treatment provided. Patient in stable condition. ID arm band removed. IV catheter removed intact and dressing applied, no active bleeding. Rx of protonix given. Patient educated on pain management and to follow up with PMD. Pain Scale 2/10. Opportunity for questions provided and answered. Medication side effect fact sheet provided. Patient A/Ox4, VSS, resp even and unlabored. NAD noted at this time.
[2021-12-14 03:17] VITALS: BP_SYST 160
[2021-12-14 04:16] LABS: BACTERIA,URINE None Seen /HPF (None Seen); WBC,URINE 0-3 /HPF (0-3)
[2021-12-14 04:17] LABS: MUCUS,URINE None Seen /LPF (None Seen)
== END 2021-12-14 03:17 | disposition home or self-care (01) ==
LOC: SED 21:02
DX: R10.13 Epigastric pain (principal); R11.0 Nausea; Z79.899 Other long term (current) drug therapy
CPT/HCPCS: 99285; 76705; 96361 ×2; 80053; 81000; 83690; 85025; 84484; 36415; 93005; 74177; 96374; 96375; 76376; J2001; J2405; C9113; J2270; J7030 ×2; J1200; Q9967